=== PATIENT | male | born 1975 | race Caucasian/White ===

== ENCOUNTER 2016-10-05 17:15 | Emergency (ER) | payer OTHER ==
[2016-10-05] MEDS ORDERED: Ketorolac Tromethamine 60 MG/2 ML VIAL ONE (17:43)
--- NOTE | 2016-10-05 18:05 | ERRECORD ---
[facility] EMERGENCY RECORD HPI BACK (17:43 JLOY) CHIEF COMPLAINT: Patient presents for evaluation of Pt with low back pain x6 hours [place] He has a chronic injury but it only flares up every few months and resolves well with toradol. HISTORIAN: History provided by patient. MECHANISM OF INJURY: Mechanism of injury: Body motion, lifting. LOCATION: Symptoms are localized to the back, to lumbar spine, left lumbar region, right lumbar region. QUALITY: Pain is dull in nature. TIME COURSE: Gradual onset of symptoms, There has been no change in the patient's symptoms over time, Symptoms are constant. ASSOCIATED WITH: No associated abdominal pain, No associated bladder incontinence, No associated bowel incontinence, No associated dysuria, No associated fever, No associated motor weakness, No associated numbness, No associated problems with urination, No associated radiation of pain, No associated sciatica, No associated tingling. EXACERBATED BY: Patient's condition exacerbated by extension, Patient's condition exacerbated by flexion, Patient's condition exacerbated by movement, Patient's condition exacerbated by upright position, Patient's condition exacerbated by walking. RELIEVED BY: Patient's condition relieved by remaining still, Patient's condition relieved by supine position. ROS (17:44 JLOY) CONSTITUTIONAL: Historian denies chills, denies fever. GI: Historian denies nausea, denies vomiting. GENITOURINARY MALE: Historian denies incontinence. MUSCULOSKELETAL: Historian reports back pain. NEUROLOGIC: Historian denies paralysis, denies paresthesias, denies sensory changes. PAST MEDICAL HISTORY MEDICAL HISTORY: Notes: Degenerative Disc Disease, Flu vaccine up to date, Tetanus immunization up to date. (17:29 JPAR) MALE SURGICAL HISTORY: back s/x to remove hematoma at 18YO. (17:29 JPAR) PSYCHIATRIC HISTORY: No previous psychiatric history. (17:29 JPAR) SOCIAL HISTORY: Patient drinks socially, every week, Patient denies drug use, Patient currently uses tobacco, chews tobacco. (17:29 JPAR) NOTES: Nursing records reviewed, Agree with nursing records. (17:45 JLOY) KNOWN ALLERGIES No Known Drug Allergies &a-1R&a+25V*p+0X*p2692U*c202B*c15G*c2P*p-0X&a-25V&a+1R Name: Fabian Dowell : 1975 M41 MedRec: [id number] AcctNum: [id number] Prepared: WedOct 05, 2016 17:59 by Interface Page 1 of 3 pMD [facility] EMERGENCY RECORD CURRENT MEDICATIONS (17:27 JPAR) None VITAL SIGNS (17:22 JPAR) VITAL SIGNS: BP: 135/63, Pulse: 88, Resp: 16, Temp: 98.3 (Oral), Pain: 5, O2 sat: 99, Time: 10/05/2016 17:22. PHYSICAL EXAM (17:44 JLOY) CONSTITUTIONAL: Vital Signs Reviewed, Patient appears non toxic, Patient alert and oriented to person, place and time. EYES: Eye exam included findings of eyelids normal to inspection, Pupils equally round and reactive to light, Conjunctiva normal. RESPIRATORY CHEST: Respiratory exam included findings of no respiratory distress, Chest exam included findings of chest movement symmetrical. BACK: Back exam included findings of normal inspection, Range of motion, limited by pain, Tenderness, midline to the lower back, paraspinal to the lower back, Straight leg raise, with pain on the left at 50 degrees, with pain on the right at 30 degrees. LOWER EXTREMITY: Lower extremity exam included findings of inspection normal, Motor strength normal, Sensation intact, no edema, no calf tenderness. NEURO: Neuro exam findings include patient oriented to person, place and time, [place] coma scale 15, Speech normal. PSYCHIATRIC: Normal affect. MEDICATION ADMINISTRATION SUMMARY Drug Name: ketorolac intramuscular, Dose Ordered: 60 mg, Route: Intramuscular, Status: Given, Time: 17:46 10/05/2016, Detailed record available in Medication Service section. PROBLEM LIST No recorded problems DIAGNOSIS (17:42 JLOY) FINAL: PRIMARY: Low back pain. PRESCRIPTION (17:42 JLOY) Flexeril: TABLET : 5 mg : ORAL : Quantity: 1 Unit: tab(s) Route: ORAL Schedule: every 8 hours PRN Dispense: 30 May substitute. Refills: No Refills . NOTES: TAKE NEEDED FOR MUSCLE PAIN OR SPASMS. No Refills. DISPOSITION PATIENT: Disposition Type: Discharge, Disposition: *Discharge &a-1R&a+25V*p+0X*k7553U*c202B*c15G*c2P*p-0X&a-25V&a+1R Name: Fabian Dowell : 1975 M41 MedRec: [id number] AcctNum: [id number] Prepared: WedOct 05, 2016 17:59 by Interface Page 2 of 3 pMD [facility] EMERGENCY RECORD Home. (17:42 SHANTELL) Patient left the department. (17:56 MAGALIE) Ya: SHANTELL=MD Rodney, Vishnu MEJIAS=SARAVANAN Matthews, Moncho &a-1R&a+25V*p+0X*o0031Z*c202B*c15G*c2P*p-0X&a-25V&a+1R Name: Fabian Dowell : 1975 M41 MedRec: [id number] AcctNum: [id number] Prepared: WedOct 05, 2016 17:59 by Interface Page 3 of 3 pMD MTDD
--- NOTE | 2016-10-05 18:13 | PICIS ---
[facility] EMERGENCY RECORD TRIAGE (17:26 JPAR) TRIAGE NOTES: Chronic Lower Back Pain. (17:26 JPAR) PATIENT: NAME: Fabian Dowell, AGE: 41, GENDER: male, : Wed1975, TIME OF GREET: WedOct 05, 2016 17:18, PREFERRED LANGUAGE: Dominican, ETHNICITY: Not or , ECODE BILLING MAP: [facility], SSN: [id number], Zip Code: [address], KG WEIGHT: 81.65, PHONE: , , , PERSON ID: [id number], PCP: Conchis MCKEON C. [facility]. (17:26 JPAR) COMPLAINT: LOW BACK PAIN,CHRONIC,. (17:26 JPAR) ADMISSION: URGENCY: 4 Non Urgent, ADMISSION SOURCE: Home, TRANSPORT: CAR, BED: TRIAGE. (17:26 JPAR) ASSESSMENT: Assessment: chronic lower back pain., Symptoms began this am, Symptoms began 6 hours ago. (17:29 JPAR) SIRS SCORING: Heart Rate 55-109 (0), Temp range 96.8-101.1 (0), respiratory rate 12-24 (0), Mental Status altered: no (0), Infection or Suspected Infection: No. (17:29 JPAR) TRIAGE SCREENING: Patient denies suicidal ideation, Patient denies presence of domestic violence. (17:29 JPAR) PROVIDERS: TRIAGE NURSE: Moncho Matthews RN. (17:26 JPAR) VITAL SIGNS: BP 135/63, Pulse 88, Resp 16, Temp 98.3, (Oral), Pain 5, O2 Sat 99, Time 10/05/2016 17:22. (17:22 JPAR) PREVIOUS VISIT ALLERGIES: No Known Drug Allergies. (17:26 JPAR) No Known Drug Allergies. (17:29 JPAR) KNOWN ALLERGIES No Known Drug Allergies CURRENT MEDICATIONS (17:27 JPAR) None VITAL SIGNS (17:22 JPAR) VITAL SIGNS: BP: 135/63, Pulse: 88, Resp: 16, Temp: 98.3 (Oral), Pain: 5, O2 sat: 99, Time: 10/05/2016 17:22. NURSING ASSESSMENT: BACK (17:27 JPAR) CONSTITUTIONAL: Patient arrives ambulatory, Gait steady, History obtained from patient, Patient appears, uncomfortable, Patient cooperative, Patient alert, Oriented to person, place and time, Skin warm, Skin dry, Skin normal in color, Mucous membranes pink, Mucous membranes moist, Patient complains of Chronic Lower Back Pain, Flared up today around noon. PAIN: aching pain, cramping pain, to the lower back, Onset of pain 6 hours, on a scale 0-10 patient rates pain as 5. BACK: Back assessment findings include no complaints of tenderness, no paresthesias to extremities, no weakness to extremities, no incontinence of bowel or bladder, Right radial pulse +3(easily palpated, considered normal), Left radial pulse +3(easily palpated, considered normal), Left dorsalis pedis pulse +3(easily &a-1R&a+25V*p+0X*s5281E*c202B*c15G*c2P*p-0X&a-25V&a+1R Name: Fabian Dowell Antionette : 1975 M41 MedRec: [id number] AcctNum: [id number] Prepared: WedOct 05, 2016 18:04 by Interface Page 1 of 5 pMD [facility] EMERGENCY RECORD palpated, considered normal), Right dorsalis pedis pulse +3(easily palpated, considered normal). NECK: Neck assessment findings include trachea midline, no jugular vein distention noted, no lymphadenopathy, no tenderness, no pain with range of motion, Patient not in spinal immobilization on arrival. NURSING PROCEDURE: DISCHARGE NOTE (17:52 JPAR) DISCHARGE: Patient discharged to home, ambulating without assistance, family driving, accompanied by //partner, Summary of Care printed/ provided, Patient requested and was provided an electronic copy of Discharge Instructions, Transition record given to patient, Discharge instructions given to patient, Simple or moderate discharge teaching performed, Prescriptions given and instructions on side effects given, Name of prescription(s) given: Flexeril, Medication reconciliation form given, Above person(s) verbalized understanding of discharge instructions and follow-up care, Patient treated and evaluated by physician. BELONGINGS: Belongings and valuables with patient at time of discharge include:, Belongings remain with patient, Valuables remain with patient. SAFETY: Side rails up, Cart/Stretcher in lowest position, Family at bedside, Call light within reach, Hospital ID band on. MEDICATION ADMINISTRATION SUMMARY Drug Name: ketorolac intramuscular, Dose Ordered: 60 mg, Route: Intramuscular, Status: Given, Time: 17:46 10/05/2016, Detailed record available in Medication Service section. MEDICATION SERVICE ketorolac intramuscular: Order: ketorolac intramuscular (ketorolac tromethamine) - Dose: 60 mg : Intramuscular Ordered by: Vishnu Stevens MD Entered by: Vishnu Stevens MD WedOct 05, 2016 17:42 , Acknowledged by: Moncho Matthews RN WedOct 05, 2016 17:42 Documented as given by: Moncho Matthews RN WedOct 05, 2016 17:46 Patient, Medication, Dose, Route and Time verified prior to administration. IM immunization, Medication administered to right thigh, Patient appears Awake and alert- acceptable, Correct patient, time, route, dose and medication confirmed prior to administration, Patient advised of actions and side-effects prior to administration, Allergies confirmed and medications reviewed prior to administration, Patient in position of comfort, Side rails up, Cart in lowest position, Family at bedside, Call light in reach. : Follow Up : Response assessment performed, No signs or symptoms of allergic reaction noted, Site inspection shows, No swelling at administration site, No drainage at administration site, No bleeding at site, No bruising noted at site, Advised not to &a-1R&a+25V*p+0X*q5508H*c202B*c15G*c2P*p-0X&a-25V&a+1R Name: Fabian Dowell : 1975 1 MedRec: [id number] AcctNum: [id number] Prepared: WedOct 05, 2016 18:04 by Interface Page 2 of 5 pMD [facility] EMERGENCY RECORD ambulate without assistance, Patient in position of comfort, Side rails up, Cart in lowest position, Family at bedside. (17:53 JPAR) HPI BACK (17:43 JL) CHIEF COMPLAINT: Patient presents for evaluation of Pt with low back pain x6 hours after [place]. He has a chronic injury but it only flares up every few months and resolves well with toradol. HISTORIAN: History provided by patient. MECHANISM OF INJURY: Mechanism of injury: Body motion, lifting. LOCATION: Symptoms are localized to the back, to lumbar spine, left lumbar region, right lumbar region. QUALITY: Pain is dull in nature. TIME COURSE: Gradual onset of symptoms, There has been no change in the patient's symptoms over time, Symptoms are constant. ASSOCIATED WITH: No associated abdominal pain, No associated bladder incontinence, No associated bowel incontinence, No associated dysuria, No associated fever, No associated motor weakness, No associated numbness, No associated problems with urination, No associated radiation of pain, No associated sciatica, No associated tingling. EXACERBATED BY: Patient's condition exacerbated by extension, Patient's condition exacerbated by flexion, Patient's condition exacerbated by movement, Patient's condition exacerbated by upright position, Patient's condition exacerbated by walking. RELIEVED BY: Patient's condition relieved by remaining still, Patient's condition relieved by supine position. ROS (17:44 JLOY) CONSTITUTIONAL: Historian denies chills, denies fever. GI: Historian denies nausea, denies vomiting. GENITOURINARY MALE: Historian denies incontinence. MUSCULOSKELETAL: Historian reports back pain. NEUROLOGIC: Historian denies paralysis, denies paresthesias, denies sensory changes. PAST MEDICAL HISTORY MEDICAL HISTORY: Notes: Degenerative Disc Disease, Flu vaccine up to date, Tetanus immunization up to date. (17:29 JPAR) MALE SURGICAL HISTORY: back s/x to remove hematoma at 18YO. (17:29 JPAR) PSYCHIATRIC HISTORY: No previous psychiatric history. (17:29 JPAR) SOCIAL HISTORY: Patient drinks socially, every week, Patient denies drug use, Patient currently uses tobacco, chews tobacco. (17:29 JPAR) NOTES: Nursing records reviewed, Agree with nursing records. (17:45 JLOY) &a-1R&a+25V*p+0X*x1064Q*c202B*c15G*c2P*p-0X&a-25V&a+1R Name: Fabian Dowell : 1975 M41 MedRec: [id number] AcctNum: [id number] Prepared: WedOct 05, 2016 18:04 by Interface Page 3 of 5 pMD [facility] EMERGENCY RECORD PHYSICAL EXAM (17:44 JLOY) CONSTITUTIONAL: Vital Signs Reviewed, Patient appears non toxic, Patient alert and oriented to person, place and time. EYES: Eye exam included findings of eyelids normal to inspection, Pupils equally round and reactive to light, Conjunctiva normal. RESPIRATORY CHEST: Respiratory exam included findings of no respiratory distress, Chest exam included findings of chest movement symmetrical. BACK: Back exam included findings of normal inspection, Range of motion, limited by pain, Tenderness, midline to the lower back, paraspinal to the lower back, Straight leg raise, with pain on the left at 50 degrees, with pain on the right at 30 degrees. LOWER EXTREMITY: Lower extremity exam included findings of inspection normal, Motor strength normal, Sensation intact, no edema, no calf tenderness. NEURO: Neuro exam findings include patient oriented to person, place and time, [place] coma scale 15, Speech normal. PSYCHIATRIC: Normal affect. EVENTS TRANSFER: Triage to Emergency Triage. (WedOct 05, 2016 17:26 JPAR) Emergency Triage to Emergency Room -03. (17:27 JPAR) Removed from Emergency Emergency Room -03. (17:56 JPAR) PROBLEM LIST No recorded problems DIAGNOSIS (17:42 JLOY) FINAL: PRIMARY: Low back pain. DISPOSITION PATIENT: Disposition Type: Discharge, Disposition: *Discharge Home. (17:42 JLOY) Patient left the department. (17:56 JPAR) INSTRUCTION (17:42 JLOY) DISCHARGE: BACK SPRAIN/STRAIN. FOLLOWUP: Conchis MCKEON, Clive HACKETT, [facility], [address] [place] [id number], [phone], Follow up with Primary Care Physician in 7-10 days. PRESCRIPTION (17:42 JLOY) Flexeril: TABLET : 5 mg : ORAL : Quantity: 1 Unit: tab(s) Route: ORAL Schedule: every 8 hours PRN Dispense: 30 May substitute. Refills: No Refills . NOTES: TAKE NEEDED FOR MUSCLE PAIN OR SPASMS. &a-1R&a+25V*p+0X*v6029V*c202B*c15G*c2P*p-0X&a-25V&a+1R Name: Fabian Dowell: 1975 M41 MedRec: [id number] AcctNum: [id number] Prepared: WedOct 05, 2016 18:04 by Interface Page 4 of 5 pMD [facility] EMERGENCY RECORD No Refills. IMAGING (17:52 JPAR) *SUPPLY CHARGE SHEET: Image captured from scanner. *DISCHARGE INSTRUCTIONS RECEIPT: Image captured from scanner. ADMIN DIGITAL SIGNATURE: MD Stevens Joshua. (17:45 JLOY) SARAVANAN Matthews Jason. (17:56 JPAR) Ya: SHANTELL=MD Stevens Joshua JPAR=SARAVANNA Matthews Jason &a-1R&a+25V*p+0X*g2679U*c202B*c15G*c2P*p-0X&a-25V&a+1R Name: Fabian Dowell : 1975 M41 MedRec: [id number] AcctNum: [id number] Prepared: WedOct 05, 2016 18:04 by Interface Page 5 of 5 pMD MTDD
== END 2016-10-05 17:50 | disposition home or self-care (01) ==
LOC: NAV ERS 17:15
DX: M54.5 Low back pain (principal); F17.220 Nicotine dependence, chewing tobacco, uncomplicated
CPT/HCPCS: 96372; J1885

== ENCOUNTER 2022-10-15 03:15 | Emergency (ER) | payer OTHER ==
[2022-10-15] MEDS ORDERED: Ketorolac Tromethamine 30 MG/ML VIAL ONE (03:37)
[2022-10-15 03:43] LABS: #Basophils 0.1 thou/uL (0.0-0.2); #Eosinphils 0.3 thou/uL (0.0-0.7); #Lymphocytes 1.7 thou/uL (1.20-3.40); #Monocytes 0.6 thou/uL (0.11-0.59); #Neutrophils 7.9 thou/uL (1.40-6.50); %Basophils 0.9 % (0.0-1.0); %Eosinophils 2.7 % (0.0-10.0); %Lymphocytes 16.1 % (21.0-51.0); %Monocytes 5.6 % (0.0-10.0); %Neutrophils 74.8 % (42.0-75.0); Hemoglobin 16.3 g/dL (14.0-18.0); Mean Corpuscular HGB CONC 35.4 g/dL (32.0-36.0); Mean Corpuscular Hemoglobin 29.9 pg (27.0-31.0); Mean Corpuscular Volume 84.6 fl (78.0-98.0); Mean Platelet Volume 11.2 fL (7.4-10.4); Platelet Count 211 10x3/uL (130-400); RBC Distribution Width 11.3 % (11.5-14.5); Red Blood Cell (RBC) Count 5.45 mill/uL (4.70-6.10); White Blood Cell (WBC) Count 10.6 10x3/uL (4.8-10.8)
[2022-10-15 03:57] LABS: ALT (SGPT) 41 U/L (8-55); AST (SGOT) 24 U/L (5-34); Albumin 4.3 g/dL (3.5-5.0); Alkaline Phosphatase 63 U/L (40-110); Anion Gap 12 mmol/L (10-20); BUN (Urea Nitrogen) 17 mg/dL (8.9-20.6); Bilirubin, Total 0.5 mg/dL (0.2-1.2); Calc. Creatinine Clearance 0 mL/min (70-130); Calcium 9.3 mg/dL (7.8-10.44); Carbon Dioxide 23 mmol/L (22-29); Chloride 106 mmol/L (98-107); Estimated GFR 69; Globulin 2.8 g/dL (2.4-3.5); Glucose 112 mg/dL (70-105); Potassium 4.1 mmol/L (3.5-5.1); Protein, Total 7.1 g/dL (6.0-8.3); Sodium 137 mmol/L (136-145)
== END 2022-10-15 04:50 | disposition home or self-care (01) ==
LOC: NAV ERS 03:15
DX: S23.41XA Sprain of ribs, initial encounter (principal); W22.8XXA Striking against or struck by other objects, initial encounter; F17.220 Nicotine dependence, chewing tobacco, uncomplicated
CPT/HCPCS: 71260; 80053; 85025; 93005; 96374; J1885